=== PATIENT | male | born 1990 | race Caucasian/White ===

== ENCOUNTER 2024-04-25 10:58 | Day surgery (SDC) | payer BC ==
[2024-04-22 08:58] VITALS: BMI 28.0
[2024-04-25 12:42] VITALS: PULSE 68; RESP 18; TEMP 97.3
[2024-04-25 12:59] VITALS: BP 118/68
== END 2024-04-25 12:57 | disposition home or self-care (01) ==
LOC: FASU-ENDO 10:58
PROVIDERS: ATTEND Internal Medicine Gastroenterology
PROC: 0DJD8ZZ Inspection of Lower Intestinal Tract, Via Natural or Artificial Opening Endoscopic (ICD-10-PCS; principal; 2024-04-25 12:19)
DX: Z12.11 Encounter for screening for malignant neoplasm of colon (principal); K64.1 Second degree hemorrhoids; Z80.0 Family history of malignant neoplasm of digestive organs